=== PATIENT | male | born 1990 | race Two or more races ===

== ENCOUNTER 2021-03-29 15:48 | Emergency (ER) | payer SELFPAY ==
[2021-03-29] MEDS ORDERED: Acetaminophen/oxyCODONE 325-5 MG Tab PO ONE (15:49)
[2021-03-29] MEDS ORDERED: Ketorolac 30 MG/ML SDV IVPUSH STA (16:20)
[2021-03-29] MEDS ORDERED: Morphine 2 MG/ML SYRINGE IVPUSH ONE (16:20)
[2021-03-29] MEDS ORDERED: Sodium Chloride 0.9% 1,000 ML IV SCH (16:30)
--- NOTE | 2021-03-29 16:30 | EDM.PDOC ---
ED HPI GENERAL MEDICAL PROBLEM - General Chief Complaint: Abdominal Pain Stated Complaint: abdominal pain Time Seen by Provider: 03/29/21 16:10 Source of Information: Reports: Patient History Limitations: Reports: No Limitations - History of Present Illness INITIAL COMMENTS - FREE TEXT/NARRATIVE: Patient presented to the ED because of of sudden onset of LLQ and RLQ pain yesterday. The pain is intermittent and cramping. !0/10 at worse. There is no N/V/D and his last BM was yesterday and it's normal. there is no fever, chills, cough/cold symptoms. Denies any urinary symptoms. Lower Abdomen Pain Score (Numeric/FACES): 10 - Related Data Allergies Allergy/AdvReac Type Severity Reaction Status Date / Time No Known Allergies Allergy Verified 03/29/21 16:16 Home Meds: Home Meds Acetaminophen/oxyCODONE [Percocet 325-5 MG] 1 each PO Q4H #10 tab 03/29/21 [Rx] Ciprofloxacin HCl [Cipro] 500 mg PO BID #20 tablet 03/29/21 [Rx] metroNIDAZOLE [Flagyl] 500 mg PO Q8H #30 tab 03/29/21 [Rx] Social & Family History - Tobacco Use Tobacco Use Status *Q: Unknown Ever Used Tobacco - Caffeine Use Caffeine Use: Reports: Soda ED ROS GENERAL - Review of Systems Review Of Systems: See Below Constitutional: Reports: No Symptoms HEENT: Reports: No Symptoms Respiratory: Reports: No Symptoms Cardiovascular: Reports: No Symptoms Endocrine: Reports: No Symptoms GI/Abdominal: Reports: Abdominal Pain : Reports: No Symptoms Musculoskeletal: Reports: No Symptoms Skin: Reports: No Symptoms Neurological: Reports: No Symptoms Psychiatric: Reports: No Symptoms ED EXAM, GI/ABD - Physical Exam Exam: See Below Exam Limited By: No Limitations General Appearance: Alert, No Apparent Distress Ears: Normal External Exam, Normal Canal Nose: Normal Inspection, Normal Mucosa, No Blood Throat/Mouth: Normal Inspection, Normal Lips, Normal Teeth, Normal Gums Head: Atraumatic, Normocephalic Neck: Normal Inspection, Supple, Non-Tender, Full Range of Motion Respiratory/Chest: No Respiratory Distress, Lungs Clear, Normal Breath Sounds, No Accessory Muscle Use, Chest Non-Tender Cardiovascular: Normal Peripheral Pulses, Regular Rate, Rhythm, No Edema, No Gal lop, No JVD, No Murmur, No Rub GI/Abdominal Exam: Normal Bowel Sounds, Soft, No Organomegaly, No Distention, No Abnormal Bruit, No Mass, Other Back Exam: Normal Inspection, Full Range of Motion Extremities: Normal Inspection, Normal Range of Motion, Non-Tender, No Pedal Edema, Normal Capillary Refill Neurological: Alert, Oriented, CN II-XII Intact (tenderness over the LLQ and RLQ) Course - Vital Signs Text/Narrative:: Lab/CT-abd/pelvis result was reviewed and discussed with patient NS 1 L bolus Toradol 30 mg IV x1 Morphine 2 mg IV x1 Cipro 500 mg PO x1 Flagyl 500 mg PO x1 His pain was down to 0/10 with the above treatment. I offered the patient to be admitted in the hospital but he said he would rather be treated at home just like what they did in [place]. I told him that he can return anytime if his pain is out of control, fever, chills, persistent nausea and vomiting and patient verbalized understanding. Last Recorded V/S: Last Vital Signs Temp 37.3 C 03/29/21 16:06 Pulse 84 03/29/21 16:06 Resp 20 03/29/21 16:06 BP 155/86 H 03/29/21 16:06 Pulse Ox 99 03/29/21 16:06 - Orders/Labs/Meds Orders: Active Orders 24 hr Category Date Time Status Abdomen Pelvis w wo Cont [CT] Stat Exams 03/29/21 17:03 Taken Sodium Chloride 0.9% [Normal Saline] 1,000 ml Med 03/29/21 16:30 Active IV ASDIRECTED Medication Orders Sodium Chloride (Normal Saline) 1,000 mls @ 999 mls/hr IV ASDIRECTED ARIN Last Admin: 03/29/21 16:30 Dose: 999 mls/hr Documented by: PER Labs: Laboratory Tests 03/29/21 03/29/21 03/29/21 Range/Units 16:12 16:30 16:30 WBC 18.2 H (3.2-10.1) x10-3/uL RBC 4.85 (3.90-5.90) x10(6)uL Hgb 14.3 (12.9-17.7) g/dL Hct 42.8 (38.3-50.1) % MCV 88.2 (80.8-98.7) fL MCH 29.4 (27.0-33.3) pg MCHC 33.3 (28.7-35.3) g/dL RDW 13.6 (12.4-15.0) % Plt Count 195 (117-477) x10(3)uL MPV 10.3 (6.7-11.0) fL Add Manual Diff Yes Neutrophils % (Manual) 77 (46-82) % Lymphocytes % (Manual) 13 (13-37) % Monocytes % (Manual) 10 (4-12) % Sodium 140 (135-145) mmol/L Potassium 3.6 (3.5-5.3) mmol/L Chloride 101 (100-110) mmol/L Carbon Dioxide 29 (21-32) mmol/L BUN 7 (7-18) mg/dL Creatinine 0.9 (0.70-1.30) mg/dL Est Cr Clr Drug Dosing 118.22 mL/min Estimated GFR (MDRD) > 60 (>60) BUN/Creatinine Ratio 7.8 L (9-20) Glucose 119 H (80-116) mg/dL Calcium 8.7 (8.6-10.2) mg/dL Total Bilirubin 2.1 H (0.1-1.3) mg/dL AST 16 (5-25) IU/L ALT 35 (12-36) U/L Alkaline Phosphatase 71 (56-112) IU/L Total Protein 8.2 H (6.0-8.0) g/dL Albumin 3.9 (3.5-5.2) g/dL Globulin 4.3 g/dL Albumin/Globulin Ratio 0.9 Amylase 25 (25-115) U/L Lipase (73-393) U/L Urine Color Yellow (YELLOW) Urine Appearance Clear (CLEAR) Urine pH 5.0 (5.0-6.5) Ur Specific [place] 1.015 (1.010-1.025) Urine Protein Negative (NEGATIVE) mg/dL Urine Glucose (UA) Normal (NORMAL) mg/dL Urine Ketones 50 H (NEGATIVE) mg/dL Urine Occult Blood Large H (NEGATIVE) Urine Nitrite Negative (NEGATIVE) Urine Bilirubin Negative (NEGATIVE) Urine Urobilinogen Normal (NEGATIVE) mg/dL Ur Leukocyte Esterase Negative (NEGATIVE) Urine RBC 10-20 H (0-5) Urine WBC 0-5 (0-5) Ur Squamous Epith Cells Few H (NS,R,O) Urine Bacteria Few H (NS) Urine Mucus Few H (NS) 03/29/21 Range/Units 16:30 WBC (3.2-10.1) x10-3/uL RBC (3.90-5.90) x10(6)uL Hgb (12.9-17.7) g/dL Hct (38.3-50.1) % MCV (80.8-98.7) fL MCH (27.0-33.3) pg MCHC (28.7-35.3) g/dL RDW (12.4-15.0) % Plt Count (117-477) x10(3)uL MPV (6.7-11.0) fL Add Manual Diff Neutrophils % (Manual) (46-82) % Lymphocytes % (Manual) (13-37) % Monocytes % (Manual) (4-12) % Sodium (135-145) mmol/L Potassium (3.5-5.3) mmol/L Chloride (100-110) mmol/L Carbon Dioxide (21-32) mmol/L BUN (7-18) mg/dL Creatinine (0.70-1.30) mg/dL Est Cr Clr Drug Dosing mL/min Estimated GFR (MDRD) (>60) BUN/Creatinine Ratio (9-20) Glucose (80-116) mg/dL Calcium (8.6-10.2) mg/dL Total Bilirubin (0.1-1.3) mg/dL AST (5-25) IU/L ALT (12-36) U/L Alkaline Phosphatase (56-112) IU/L Total Protein (6.0-8.0) g/dL Albumin (3.5-5.2) g/dL Globulin g/dL Albumin/Globulin Ratio Amylase (25-115) U/L Lipase 29 L (73-393) U/L Urine Color (YELLOW) Urine Appearance (CLEAR) Urine pH (5.0-6.5) Ur Specific [place] (1.010-1.025) Urine Protein (NEGATIVE) mg/dL Urine Glucose (UA) (NORMAL) mg/dL Urine Ketones (NEGATIVE) mg/dL Urine Occult Blood (NEGATIVE) Urine Nitrite (NEGATIVE) Urine Bilirubin (NEGATIVE) Urine Urobilinogen (NEGATIVE) mg/dL Ur Leukocyte Esterase (NEGATIVE) Urine RBC (0-5) Urine WBC (0-5) Ur Squamous Epith Cells (NS,R,O) Urine Bacteria (NS) Urine Mucus (NS) Meds: Medications Generic Name Dose Route Start Last Admin Trade Name Godwin PRN Reason Stop Dose Admin Sodium Chloride 1,000 mls @ 999 mls/hr 03/29/21 16:30 03/29/21 16:30 Normal Saline IV 999 mls/hr ASDIRECTED ARIN Administration Discontinued Medications Generic Name Dose Route Start Last Admin Trade Name Godwin PRN Reason Stop Dose Admin Ciprofloxacin 500 mg 03/29/21 17:50 03/29/21 17:59 Ciprofloxacin 500 Mg Tab PO 03/29/21 17:51 500 mg NOW STA Administration Iopamidol 100 ml 03/29/21 17:08 03/29/21 17:20 Iopamidol 755 Mg/Ml 100 Ml Bottle IV 03/29/21 17:09 100 ml . DIRECTED ONE Administration Ketorolac Tromethamine 30 mg 03/29/21 16:20 03/29/21 16:29 Ketorolac 30 Mg/Ml Sdv IVPUSH 03/29/21 16:21 30 mg NOW STA Administration Metronidazole 500 mg 03/29/21 17:50 03/29/21 17:59 Metronidazole 500 Mg Tab PO 03/29/21 17:51 500 mg NOW STA Administration Morphine Sulfate 2 mg 03/29/21 16:20 03/29/21 16:30 Morphine 2 Mg/Ml Syringe IVPUSH 03/29/21 16:21 2 mg ONETIME ONE Administration Departure - Departure Time of Disposition: 18:00 Disposition: Home, Self-Care 01 Condition: Good Clinical Impression: Diverticulitis - Discharge Information Prescriptions: Ciprofloxacin HCl [Cipro] 500 mg PO BID #20 tablet metroNIDAZOLE [Flagyl] 500 mg PO Q8H #30 tab Acetaminophen/oxyCODONE [Percocet 325-5 MG] 1 each PO Q4H #10 tab Instructions: Diverticulitis, [id number] Referrals: PCP,None [Primary Care Provider] - Forms: ED Department Discharge Additional Instructions: Please read discharge instructions on diverticulitis Drink 2-4 liters of water daily Cipro 500 mg Twice daily for 10 days Flagyl/metronidazole 500 mg 3 times daily for 10 days Percocet/oxycodone 5 mg, take with ibuprofen 600 mg every 4-6 hours as needed for pain Return to the ED with increasing pain, persistent nausea and vomiting, fever, chills. Follow up with your clinic this week Sepsis Event Note (ED) - Evaluation Sepsis Screening Result: No Definite Risk - Focused Exam Vital Signs: Vital Signs Temp Pulse Resp BP Pulse Ox 03/29/21 16:06 37.3 C 84 20 155/86 H 99 - My Orders Last 24 Hours: My Active Orders 03/29/21 16:30 Sodium Chloride 0.9% [Normal Saline] 1,000 ml IV ASDIRECTED 03/29/21 17:03 Abdomen Pelvis w wo Cont [CT] Stat - Assessment/Plan Last 24 Hours: My Active Orders 03/29/21 16:30 Sodium Chloride 0.9% [Normal Saline] 1,000 ml IV ASDIRECTED 03/29/21 17:03 Abdomen Pelvis w wo Cont [CT] Stat
[2021-03-29] MEDS ORDERED: Iopamidol 755 Mg/ML 100 ML Bottle IV ONE (17:08)
[2021-03-29] MEDS ORDERED: metroNIDAZOLE 500 MG Tab PO STA (17:50)
[2021-03-29] MEDS ORDERED: Ciprofloxacin 500 MG Tab PO STA (17:50)
--- NOTE | 2021-03-29 18:14 | CT ---
CT ABDOMEN AND PELVIS WITHOUT AND WITH CONTRAST WITH CT UROGRAM INDICATION: Left lower quadrant and right lower quadrant pain with hematuria and elevated white blood count with chills. TECHNIQUE: Spiral 2.5 mm axial sections were initially obtained without IV contrast through the abdomen and pelvis and then with 100 cc Isovue 370 at 2 cc/second at 110 seconds delay through the abdomen and pelvis with additional 6 minute delayed images through the abdomen and pelvis, with sagittal and coronal reconstructions, 03/29/21 - no comparisons. Total exam DLP was 6441.21 mGy/cm. FINDINGS: The lower lung sharp and pleural spaces visualized appeared normal. The heart was normal in size. No pericardial effusion was seen. The upper abdominal organs including the kidneys, adrenal glands, gallbladder, liver, spleen and pancreas appeared normal without evidence of a retroperitoneal mass. Minimal retroperitoneal lymphadenopathy was noted which is nonspecific. The appendix appeared normal. No evidence of bowel obstruction or free air was identified. There is minimal diverticulosis in the distal descending and sigmoid colon with thickening of the wall and extensive pericolonic fat stranding which extends anteriorly and cranially from the sigmoid loop. Findings are compatible with diverticulitis with peritonitis. Also noted is passage of the left ureter through the area of inflammation. No evidence of abscess formation was identified. No ventral or inguinal hernia was seen. No additional organomegaly, mass lesions or free fluid collections were identified in the abdomen or pelvis. CT urograms appeared normal. No bladder mass was suggested. No filling defects were noted in the CT urogram or urinary bladder. IMPRESSION: Findings are compatible with diverticulitis with peritonitis. The left ureter extends slightly into the area of inflammation but is not significantly effected as its diameter appears normal, as is the right ureter. Report was called to Dr. Barros at 1741 hours 03/29/21. [facility]
== END 2021-03-29 18:20 | disposition home or self-care (01) ==
LOC: FB.ED 15:48
DX: K57.32 Diverticulitis of large intestine without perforation or abscess without bleeding (principal)
CPT/HCPCS: 36415; 74178; 80053; 81001; 82150; 83690; 85025; 96374; 96375; 99284; A9270; J1885; J2270; J7030; Q9967